=== PATIENT | male | born 1965 | race Caucasian/White ===

== ENCOUNTER 2016-09-24 16:20 | Emergency (ER) | payer MEDICARE ==
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
[2016-09-24 16:42] VITALS: BP 142/87; TEMP 98.4
--- NOTE | 2016-09-24 17:19 | RAD ---
EXAM DESCRIPTION: Knee,Right Complete CLINICAL HISTORY: 50 years, Male, pain COMPARISON: None. FINDINGS: Three views of the RIGHT knee were performed. No localized soft tissue swelling or radiopaque foreign body is identified. Bone mineralization is within normal limits. No fracture is seen. Trace RIGHT knee effusion. Bony alignment is maintained. Osteophytes involve the patellofemoral femoral joint and there is some peaking of the tibial spines consistent with early degenerative change. IMPRESSION: No RIGHT knee acute bony injury. Trace RIGHT knee effusion. Early three compartment osteoarthritis. Electronically signed by: Yumiko Garcia MD 09/24/2016 5:19 PM CDT
[2016-09-24 17:46] VITALS: O2SAT 97
== END 2016-09-24 17:46 | disposition home or self-care (01) ==
LOC: ER 16:20
DX: S86.911A Strain of unspecified muscle(s) and tendon(s) at lower leg level, right leg, initial encounter (principal); X50.3XXA Overexertion from repetitive movements, initial encounter; Y92.9 Unspecified place or not applicable